=== PATIENT | male | born 1980 | race Caucasian/White ===

== ENCOUNTER 2016-04-15 17:40 | Observation (INO) | payer OTHER, BC ==
[~2016-04-15] VITALS: Ht 180.3 cm; Wt 70.8 kg
[~2016-04-15 17:40] MED LIST: ALPR.5T PO; CIPR-17 PO; FAMO20TA5 PO; HYDR-2890 PO; HYDR-3714 PO; HYOS0.1216 PO; LEVO250T7 PO; MECL25TA3 PO; OXYC1TAB87 PO; PHEN200T27 PO; TEMA30CA6 PO; TRAM50TA2 PO; [UNRECOGNIZED DRUG - OTHER]; [UNRECOGNIZED DRUG - OTHER]
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
[2016-04-15] MEDS ORDERED: CHOL378P PO (17:54)
[2016-04-15] MEDS ORDERED: NS IV 1000 ML 1,000 ML IV ONE (17:56)
[2016-04-15 18:13] LABS: BASOPHILS % (AUTO) 0 % (0-10); EOSINOPHILS # (AUTO) 0.2 10^3/uL (0.0-0.3); EOSINOPHILS % (AUTO) 3 % (0-10); LYMPHOCYTES # (AUTO) 2.5 X 10^3 (1.0-4.0); LYMPHOCYTES % (AUTO) 35 % (12-44); MEAN CORPUSCULAR HEMOGLOBIN 30 PG (25-34); MEAN CORPUSCULAR HGB CONC 37 G/DL (32-36); MEAN CORPUSCULAR VOLUME 82 FL (80-99); MEAN PLATELET VOLUME 9.6 FL (7.4-10.4); MONOCYTES # (AUTO) 0.6 X 10^3 (0.0-1.0); MONOCYTES % (AUTO) 8 % (0-12); NEUTROPHILS % (AUTO) 55 % (42-75); PLATELET COUNT 197 10^3/uL (130-400); RED BLOOD COUNT 5.05 10^6/uL (4.35-5.85); RED CELL DISTRIBUTION WIDTH 12.5 % (10.0-14.5); WHITE BLOOD COUNT 7.3 10^3/uL (4.3-11.0)
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
[2016-04-15 18:21] LABS: INR 1.1 (0.8-1.4); PROTHROMBIN TIME PATIENT 13.9 SEC (12.2-14.7)
[2016-04-15 18:31] LABS: BILIRUBIN,URINE NEGATIVE (NEGATIVE); KETONES,URINE NEGATIVE (NEGATIVE); LEUKOCYTE ESTERASE ,URINE NEGATIVE (NEGATIVE); NITRITE,URINE NEGATIVE (NEGATIVE); PH,URINE 6.5 (5-9); PROTEIN,URINE NEGATIVE (NEGATIVE); SQUAMOUS EPITHELIAL CELL,UR RARE /HPF; UROBILINOGEN,URINE NORMAL (NORMAL)
[2016-04-15 18:32] LABS: ALANINE AMINOTRANSFERASE 40 U/L (0-55); ALBUMIN 4.9 G/DL (3.2-4.5); ANION GAP 12 MMOL/L (5-14); ASPARTATE AMINO TRANSFERASE 28 U/L (5-34); BILIRUBIN,TOTAL 0.4 MG/DL (0.1-1.0); BLOOD UREA NITROGEN 26 MG/DL (7-18); BUN/CREATININE RATIO 25; CALCIUM 9.7 MG/DL (8.5-10.1); CARBON DIOXIDE 24 MMOL/L (21-32); CHLORIDE 104 MMOL/L (98-107); CREATINE KINASE 248 U/L (30-200); CREATININE SERUM 1.05 MG/DL (0.60-1.30); GFR ESTIMATED > 60; GLUCOSE 92 MG/DL (70-105); POTASSIUM 3.6 MMOL/L (3.6-5.0); SODIUM 140 MMOL/L (135-145); TOTAL PROTEIN 7.6 G/DL (6.4-8.2)
[2016-04-15 18:38] LABS: TROPONIN I < 0.30 NG/ML (<0.30)
[2016-04-15] MEDS ORDERED: ENALAPRILAT 2.5 MG/2 ML (VASOTEC) VIAL IV ONE (18:45)
[2016-04-15 20:00] VITALS: BP 144/87
[2016-04-15] MEDS ORDERED: CATHETER FLUSH 10 ML SYR IV PRN (20:15)
[2016-04-15] MEDS: NS IV 1000 ML 1,000 ML IV SCH (20:26)
[2016-04-15 21:00] VITALS: BP 132/87
[2016-04-15 22:00] VITALS: BP 126/82
[2016-04-15] MEDS: fentaNYL INJECTION 100 MCG/2 ML AMP IVP PRN (22:16)
[2016-04-15 23:00] VITALS: BP 135/90
[2016-04-16] VITALS (14 sets, daily range): BP systolic 107–131; BP diastolic 65–90
[2016-04-16] MEDS: NS IV 1000 ML 1,000 ML IV SCH ×4 (00:15→08:36)
[2016-04-16] MEDS: fentaNYL INJECTION 100 MCG/2 ML AMP IVP PRN ×4 (00:22→10:51)
[2016-04-16 04:40] LABS: BASOPHILS % (AUTO) 0 % (0-10); EOSINOPHILS # (AUTO) 0.2 10^3/uL (0.0-0.3); EOSINOPHILS % (AUTO) 4 % (0-10); LYMPHOCYTES # (AUTO) 2.6 X 10^3 (1.0-4.0); LYMPHOCYTES % (AUTO) 47 % (12-44); MEAN CORPUSCULAR HEMOGLOBIN 30 PG (25-34); MEAN CORPUSCULAR HGB CONC 36 G/DL (32-36); MEAN CORPUSCULAR VOLUME 84 FL (80-99); MEAN PLATELET VOLUME 9.8 FL (7.4-10.4); MONOCYTES # (AUTO) 0.5 X 10^3 (0.0-1.0); MONOCYTES % (AUTO) 9 % (0-12); NEUTROPHILS # (AUTO) 2.3 X 10^3 (1.8-7.8); NEUTROPHILS % (AUTO) 41 % (42-75); PLATELET COUNT 200 10^3/uL (130-400); RED BLOOD COUNT 4.48 10^6/uL (4.35-5.85); RED CELL DISTRIBUTION WIDTH 12.5 % (10.0-14.5); WHITE BLOOD COUNT 5.6 10^3/uL (4.3-11.0)
[2016-04-16 04:58] LABS: ANION GAP 10 MMOL/L (5-14); BLOOD UREA NITROGEN 18 MG/DL (7-18); BUN/CREATININE RATIO 23; CALCIUM 8.3 MG/DL (8.5-10.1); CARBON DIOXIDE 21 MMOL/L (21-32); CHLORIDE 108 MMOL/L (98-107); CREATININE SERUM 0.77 MG/DL (0.60-1.30); GFR ESTIMATED > 60; GLUCOSE 86 MG/DL (70-105); MAGNESIUM 2.2 MG/DL (1.8-2.4); PHOSPHORUS 3.5 MG/DL (2.3-4.7); POTASSIUM 3.5 MMOL/L (3.6-5.0); SODIUM 139 MMOL/L (135-145)
[2016-04-16] MEDS ORDERED: POTASSIUM CL 10MEQ/50ML IVPB 50 ML IV SCH ×2 (05:45→06:00)
[2016-04-16] MEDS ORDERED: KCL 20 MEQ TAB (K-DUR) PO ONE (05:45)
[2016-04-16] MEDS ORDERED: KCL 20 MEQ TAB (K-DUR) PO SCH (06:00)
[2016-04-16] MEDS ORDERED: MAGNESIUM 1 GM/100 ML IVPB 100 ML IV SCH (06:00)
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
[2016-04-16] MEDS ORDERED: CHOL4PAC2 PO (08:48)
--- NOTE | 2016-04-16 08:51 | Diagnostic Imaging Report ---
INDICATION: Electrocution Portable chest 2:50 AM Heart size and pulmonary vascularity are normal. Lungs are clear. There are no effusions or pneumothoraces. IMPRESSION: No acute abnormalities in the chest Dictated by: Dictated on workstation # [id number]
[2016-04-16] MEDS ORDERED: NICOTINE 7 MG (NICODERM) PATCH TD SCH (09:00)
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
[2016-04-16] MEDS ORDERED: HYDR-3731 PO (10:09)
--- NOTE | 2016-04-16 10:10 | Discharge Instructions ---
Discharge Instructions Discharge Medications New, Converted or Re-Newed RX: RX on Chart New Medications: Hydrocodone/Acetaminophen (Lortab 10-325 mg Tablet) 1 Each Tablet 1 EACH PO TID PRN PAIN #30 TAB Continued Medications: Alprazolam (Xanax) 0.5 Mg Tablet 0.5 MG PO HS TAB Cholestyramine (with Sugar) (Cholestyramine Packet) 4 Gm Powd.pack 4 GM PO DAILY EACH Temazepam (Restoril) 30 Mg Capsule 30 MG PO HS CAP Patient Instructions Goal/Follow Up Appt: Dr Martínez in 1 week Activity & Diet Discharge Diet: No Restrictions Activity as Tolerated: Yes KASH OLIVEROS DO Apr 16, 2016 10:10
[2016-04-16] MEDS ORDERED: CHOLESTYRAMINE 4 GM (QUESTRAN LITE, PREVALITE) PKT PO SCH (10:15)
--- NOTE | 2016-04-16 12:17 | Consultation-Cardiology ---
HPI-Cardiology Cardiology Consultation: Date of Consultation 04/16/16 Date of Admission Attending Physician Susan Garcia DO Admitting Physician Verónica,Local Physician Consulting Physician Joseph PICKERING MD HPI: Chief Complaint: Electrocution This is a 35-year-old gentleman with previous history of hypertension. He presents with electrocution with 100,000 V. No chest pain, shortness of breath , syncope or palpitations. Review of Systems-Cardiology Review of Systems Constitutional: No As described under HPI, No no symptoms reported, No chills, No fever, No lightheadedness, No malaise, No tiredness, No weight loss, No weight gain, No other Eyes: No As described under HPI, No no symptoms reported, No blindness, No blurred vision, No contact lenses, No drainage, No decreased acuity, No foreign body sensation, No glasses, No inflammation, No pain, No photophobia, No previous injury, No shadows, No tunnel vision, No other, No vision change Ears/Nose/Throat: No As described under HPI, No no symptoms reported, No chronic hearing loss, No epistaxis, No ear discharge, No ear pain, No loose teeth, No mouth pain, No mouth swelling, No nasal drainage, No nose pain, No recent hearing loss, No throat pain, No throat swelling, No ulcerations, No other Respiratory: No no symptoms reported, No As described under HPI, No cough, No orthopnea, No shortness of breath, No SOB with excertion, No SOB at rest, No stridor, No wheezing, No other Cardiovascular: No no symptoms reported, No As described under HPI, No chest pain, No edema, No irregular heart rate, No lightheadedness, No palpitations, No syncope, No other Gastrointestinal: No no symptoms reported, No As described under HPI, No abdomen distended, No abdominal pain, No blood streaked bowels, No constipation , No diarrhea, No difficulty swallowing, No nausea, No poor appetite, No poor fluid intake, No rectal bleeding, No vomiting, No other, No nausea/vomiting/ diarrhea, No stool coloration changes Genitourinary: No no symptoms reported, No As described under HPI, No burning, No dysuria, No discharge, No frequency, No flank pain, No hematuria, No incontinence, No pain, No urgency, No other, No urine frequency changes, No urine coloration changes Musculoskeletal: No no symptoms reported, No As describe under HPI, No back pain, No gout, No joint pain, No joint swelling, No muscle pain, No muscle stiffness, No neck pain, No other Skin: No no symptoms reported, No As described under HPI, No change in color, No change in hair/nails, No dryness, No lesions, No lumps, No rash, No other, No skin related problems, No ulcerations, No rash on exposed areas, No ulcerations on exposed areas Psychiatric/Neurological: No As described under HPI, No anxiety, No depression , No emotional problems, No focal weakness, No headache, No no symptoms reported , No numbness, No other, No pre-existing deficit, No seizure, No syncope, No tingling, No tremors, No weakness All Other Systems Reviewed Negative Unless Noted: Yes [id number] Hx Patient Social History Marrital Status: (11 yrs) Employed/Student: employed ([employer]L 6 months) Alcohol Use: Denies Use Recreational Drug Use: No Smoking Status: Former Smoker Type Used: Cigars, Cigarettes Recent Foreign Travel: No Recent Infectious Disease Expo: No Physical Abuse Screen: No Sexual Abuse: No Immunizations Up To Date Tetanus Booster (TDap): Less than 5yrs Date of Influenza Vaccine: Jan 03, 2016 Past Medical History PMH As described under Assessment. Family Medical History Family History: Cataract GRANDMOTHER, Onset:Unknown Family history: Diabetes mellitus GRANDFATHER, Onset:Unknown Family history: Hypertension 03 FATHER, Onset:Unknown 03 MOTHER, Onset:Unknown GRANDFATHER, Onset:Unknown Family history: Thyroid disorder GRANDMOTHER, Onset:Unknown Hearing loss 03 FATHER, Onset:Unknown Heart disease 03 FATHER, Onset:Unknown GRANDFATHER, Onset:Unknown History of - anemia 03 FATHER, Onset:Unknown Stroke 03 FATHER, Onset:Unknown Allergies and Home Medications Allergies Coded Allergies: meperidine (Verified Allergy, Severe, HIVES, 04/15/16) Sulfa (Sulfonamide Antibiotics) (Verified Allergy, Unknown, 12/09/15) Home Medications Alprazolam 0.5 Mg Tablet 0.5 MG PO HS (Reported) Cholestyramine (with Sugar) 4 Gm Powd.pack 4 GM PO DAILY (Reported) Hydrocodone/Acetaminophen 1 Each Tablet #30 1 EACH PO TID PRN PRN PAIN Prescribed by: SUSAN GARCIA on 04/16/16 1009 Temazepam 30 Mg Capsule 30 MG PO HS (Reported) Physical Exam-Cardiology Physical Exam Vital Signs/I&O Vital Sign - Last 12Hours 04/16/16 04/16/16 04/16/16 04/16/16 01:00 01:00 02:00 03:00 Pulse 63 59 57 63 Resp 8 12 11 B/P 117/66 119/65 107/66 Pulse Ox 97 94 96 O2 Delivery Room Air Room Air Room Air 04/16/16 04/16/16 04/16/16 04/16/16 04:00 04:00 05:00 06:00 Temp 98.0 Pulse 52 64 56 Resp 18 10 6 B/P 123/73 111/71 126/84 Pulse Ox 98 97 97 94 O2 Delivery Room Air Room Air Room Air Room Air 04/16/16 04/16/16 07:00 08:00 Temp 96.3 Pulse 63 O2 Delivery Room Air Intake and Output 04/16/16 00:00 Intake Total 1000 ml Balance 1000 ml Capillary Refill : Less Than 3 Seconds Constitutional: No appears stated age, No AAO x 3, No apparent distress, No PERRL, No well-developed, No well-nourished, No other HEENT: No PERRL, No normal ENT inspection, No TMs normal, No pharynx normal, No scleral icterus (R), No scleral icterus (L), No pale conjunctivae (R), No pale conjunctivae (L), No photophobia, No TM abnormal (R), No TM abnormal (L), No pharyngeal erythema, No tonsillar exudate, No other, No discharge, No EOMI, No hearing is well preserved, No hard of hearing, No oral hygience is good, No ulceration, No xanthelasmas are seen Neck: No non-tender, No full range of motion, No supple, No normal inspection, No carotid bruit, No limited range of motion, No lymphadenopathy (R), No lymphadenopathy (L), No tender lateral, No tender midline, No thyromegaly, No other, No carotid pulses are 2 + bilaterally, No with good upstrokes Respiratory: No accessory muscle use, No respiratory distress, No chest tender , No chest expansion is symmetric, No chest is bilaterally symmetric, No lungs clear to percussion, No lungs clear to auscultation, No crackles, No rhonchi, No rales, No stridor, No wheezing, No pleural rub, No other Cardiovascular: No regular rate-rhythm, No irregularly irregular, No extra beats, No parasternal heave is noted, No JVD, No edema, No bradycardia, No tachycardia, No point of maximal impulse, No cardiac thrills are palpable, No S1 and S2, No gallop/S3, No gallop/S4, No diastolic murmur, No systolic murmur, No friction rub, No click, No other Gastrointestinal: No tender, No soft, No round, No distended, No pulsatile mass , No organomegaly, No guarding, No rebound, No tenderness, No hernia, No mass, No audible bowel sounds, No abnormal bowel sounds, No abdominal bruits, No spleenomegaly, No other Rectal: deferred Extremities: No normal range of motion, No non-tender, No normal inspection, No pedal edema, No calf tenderness, No normal capillary refill, No pelvis stable , No calf tenderness, No inflammation, No pedal edema, No slow capillary refill , No swelling, No other, No abrasion, No clubbing, No cyanosis, No ecchymosis, No laceration, No no lower extremity edema bilateral, No significant edema, No tenderness, No wound Neurologic/Psychiatric: No cast associate II-XII nml as tested, No no motor/sensory deficits, No alert, No normal mood/affect, No oriented x 3, No abnormal cerebellar tests, No abnormal cast associate II-XII, No abnormal gait, No aphasia, No EOM palsy, No facial droop, No motor weakness, No sensory deficit, No depressed affect, No disoriented x 3, No other, No grossly intact, No power is 5/5 both on sides Skin: No normal color, No warm/dry, No cyanosis, No cool, No diaphoresis, No damp, No ecchymosis, No jaundice, No mottled, No pallor, No rash, No tattoos/ piercings, No ulcerations, No rash on exposed areas, No ulcerations on exposed areas, No other Data Review Labs Laboratory Tests 04/15/16 17:55: Activated Partial Thromboplast Time 25, Alanine Aminotransferase (ALT/SGPT) 40, Albumin 4.9H, Alkaline Phosphatase 106, Anion Gap 12, Aspartate Amino Transf ( AST/SGOT) 28, BUN/Creatinine Ratio 25, Basophils # (Auto) 0.0, Basophils (%) ( Auto) 0, Blood Urea Nitrogen 26H, Calcium Level 9.7, Carbon Dioxide Level 24, Chloride Level 104, Creatine Kinase MB 3.4, Creatinine 1.05, Eosinophils # (Auto ) 0.2, Eosinophils (%) (Auto) 3, Estimat Glomerular Filtration Rate > 60, Glucose Level 92, Hematocrit 42, Hemoglobin 15.2, INR Comment 1.1, Lymphocytes # (Auto) 2.5, Lymphocytes (%) (Auto) 35, Mean Corpuscular Hemoglobin 30, Mean Corpuscular Hemoglobin Concent 37H, Mean Corpuscular Volume 82, Mean Platelet Volume 9.6, Monocytes # (Auto) 0.6, Monocytes (%) (Auto) 8, Neutrophils # (Auto ) 4.0, Neutrophils (%) (Auto) 55, Platelet Count 197, Potassium Level 3.6, Prothrombin Time 13.9, Red Blood Count 5.05, Red Cell Distribution Width 12.5, Sodium Level 140, Total Bilirubin 0.4, Total Creatine Kinase 248H, Total Protein 7.6, Troponin I < 0.30, White Blood Count 7.3 04/15/16 18:12: Urine Bacteria NONE, Urine Bilirubin NEGATIVE, Urine Casts NONE, Urine Clarity CLEAR, Urine Color YELLOW, Urine Crystals NONE, Urine Culture Indicated NO, Urine Glucose (UA) NEGATIVE, Urine Ketones NEGATIVE, Urine Leukocyte Esterase NEGATIVE, Urine Mucus NEGATIVE, Urine Nitrite NEGATIVE, Urine Protein NEGATIVE, Urine RBC NONE, Urine RBC (Auto) NEGATIVE, Urine Specific Sandy 1.015L, Urine Squamous Epithelial Cells RARE, Urine Urobilinogen NORMAL, Urine WBC NONE, Urine pH 6.5 04/16/16 00:38: Troponin I < 0.30 04/16/16 03:42: Anion Gap 10, BUN/Creatinine Ratio 23, Basophils # (Auto) 0.0, Basophils (%) ( Auto) 0, Blood Urea Nitrogen 18, Calcium Level 8.3L, Carbon Dioxide Level 21, Chloride Level 108H, Creatinine 0.77, Eosinophils # (Auto) 0.2, Eosinophils (%) (Auto) 4, Estimat Glomerular Filtration Rate > 60, Glucose Level 86, Hematocrit 38L, Hemoglobin 13.5, Lymphocytes # (Auto) 2.6, Lymphocytes (%) (Auto) 47H, Mean Corpuscular Hemoglobin 30, Mean Corpuscular Hemoglobin Concent 36, Mean Corpuscular Volume 84, Mean Platelet Volume 9.8, Monocytes # (Auto) 0.5, Monocytes (%) (Auto) 9, Neutrophils # (Auto) 2.3, Neutrophils (%) (Auto) 41L, Platelet Count 200, Potassium Level 3.5L, Red Blood Count 4.48, Red Cell Distribution Width 12.5, Sodium Level 139, Total Creatine Kinase 175, White Blood Count 5.6, Magnesium Level 2.2, Phosphorus Level 3.5 ECG Impression ECG Initial ECG Rhythm: Normal Sinus A/P-Cardiology Assessment/Admission Diagnosis Status post electrocution, hypertension Plan Normal EKG, normal lab work, normal telemetry overnight. Okay to discharge. I'll be happy to see him as an outpatient for hypertension if required. Clinical Quality Measures DVT/VTE Risk/Contraindication: RFS Level Per Nursing on Admit: 0=No Risk/No VTE PPX Joseph PICKERING MD Apr 16, 2016 12:17 pm
[2016-04-16] MEDS ORDERED: TEMAZEPAM 15 MG (RESTORIL) CAP PO SCH (21:00)
[2016-04-16] MEDS ORDERED: ALPRAZolam 0.5 MG (XANAX) TAB PO SCH (21:00)
== END 2016-04-16 10:09 | disposition home or self-care (01) ==
LOC: EDUNIT# 17:40 → ER 17:42 → ICU 19:03 → UNDOADMOB 19:03 → ICU 19:50 → UNDODISOB 04-16 10:09
PROVIDERS: ADMIT Internal Medicine; ATTEND Internal Medicine
DX: T75.4XXA Electrocution, initial encounter (principal); W85.XXXA Exposure to electric transmission lines, initial encounter; I10 Essential (primary) hypertension; K21.9 Gastro-esophageal reflux disease without esophagitis; F41.9 Anxiety disorder, unspecified; Y99.0 Civilian activity done for income or pay
CPT/HCPCS: 36415; 71010; 80048; 80053; 81000; 82550; 82553; 83735; 84100; 84484; 85025; 85610; 85730; 87081; 93005; 93041; 96361; 96374; G0378

== ENCOUNTER → 2021-11-09 | Outpatient (REF) ==
[~2021-11-09] MED LIST changes: +CHOL378P12 PO; +CHOL4POW4 PO; +HYDR-3731 PO
--- NOTE | 2021-11-09 09:33 | Diagnostic Imaging Report ---
CLINICAL HISTORY: Left thumb laceration and swelling. Smashed the left thumb. COMPARISON: None. TECHNIQUE: 3 views of the left hand and left thumb. FINDINGS: Nondisplaced fracture seen at the distal aspect of the left 1st distal phalanx. Associated soft tissue edema is present. No other fractures are seen in the left hand. Alignment is anatomic. IMPRESSION: 1. Tuft fracture involving the distal aspect of the left 1st phalanx. Dictated by: Dictated on workstation # [id number]
== END | disposition home or self-care (01) ==
LOC: OCC 08:31
PROVIDERS: ATTEND Nurse Practitioner Family
DX: Z01.818 Encounter for other preprocedural examination (principal)
CPT/HCPCS: 73140

== ENCOUNTER → 2021-12-18 | Outpatient (REF) ==
--- NOTE | 2021-12-18 13:04 | Diagnostic Imaging Report ---
FINGER(S) INDICATION: Fracture follow-up. COMPARISON: 09/09/2021. TECHNIQUE: Three views of the left thumb. FINDINGS: The mildly comminuted fracture in the tuft of the thumb maintains stable alignment and position. No interosseous or periosteal healing callus has developed. No new fracture. IMPRESSION: No healing has occurred in the fracture of the tuft in the thumb. Dictated by: Dictated on workstation # [id number]
== END ==
LOC: OCC 12:19
PROVIDERS: ATTEND Nurse Practitioner Family
DX: Z47.89 Encounter for other orthopedic aftercare (principal)
CPT/HCPCS: 73140

== ENCOUNTER 2022-12-20 14:25 | Outpatient (CLI) | payer BC, OTHER ==
[~2022-12-20] VITALS: Ht 180.3 cm; Wt 88.3 kg
[2022-12-21] MEDS ORDERED: MV-M1TAB37 PO (14:51)
[2022-12-21] MEDS ORDERED: FLUT9.9S NS (14:51)
[2022-12-21] MEDS ORDERED: PANT40SU PO (14:51)
[2022-12-21] MEDS ORDERED: FEXO180T84 PO (14:51)
== END 2022-12-21 15:39 | disposition home or self-care (01) ==
LOC: PREOP 14:25
PROVIDERS: ATTEND Surgery
DX: Z01.818 Encounter for other preprocedural examination (principal)

== ENCOUNTER 2022-12-30 11:07 | Day surgery (SDC) | payer BC ==
[~2022-12-30] VITALS: Ht 180.3 cm; Wt 88.3 kg
[2022-12-30] VITALS (12 sets, daily range): BP systolic 110–155; BP diastolic 58–103
[~2022-12-30 11:07] MED LIST changes: +FEXO180T84 PO; +FLUT9.9S NS; +MV-M1TAB37 PO; +PANT40SU PO
[2022-12-30] MEDS ORDERED: NS (IVPB) 50 ML 50 ML ONE (11:19)
[2022-12-30] MEDS ORDERED: ceFAZolin INJECTION 2,000 MG ONE (11:19)
[2022-12-30] MEDS ORDERED: LACTATED RINGERS 1,000 ML 1,000 ML IV PRN (11:30)
[2022-12-30] MEDS ORDERED: ceFAZolin INJECTION 2,000 MG in NS (IVPB) 50 ML 50 ML IV ONE (11:30)
[2022-12-30] MEDS ORDERED: SOUR1000 PO (12:06)
[2022-12-30] MEDS ORDERED: proPOfol INJECTION 200 MG/20 ML VIAL IV ONE ×2 (12:15→14:01)
[2022-12-30] MEDS ORDERED: ONDANSETRON INJECTION 4 MG/2 ML (SDV) ONE (12:15)
[2022-12-30] MEDS ORDERED: fentaNYL INJECTION 100 MCG/2 ML VIAL ONE (12:15)
[2022-12-30] MEDS ORDERED: MIDAZOLAM INJ 2 MG/2 ML VIAL ONE (12:15)
[2022-12-30] MEDS ORDERED: LIDOCAINE PF 2% 5 ML VIAL ONE (12:15)
[2022-12-30] MEDS ORDERED: dexAMETHasone INJ 10 MG/ML 1 ML VIAL ONE (12:15)
[2022-12-30] MEDS ORDERED: GLYCOPYRROLATE INJ 0.2 MG/ML 2 ML VIAL ONE (12:15)
[2022-12-30] MEDS ORDERED: NEOSTIGMINE 1 MG/1ML 10 ML VIAL ONE (12:16)
[2022-12-30] MEDS ORDERED: ROCURONIUM 50 MG/5 ML VIAL IV ONE (12:16)
[2022-12-30] MEDS ORDERED: LIDOCAINE/EPI 1%-1:200,000 (XYLOCAINE) 30 ML VIAL ONE (13:09)
[2022-12-30] MEDS ORDERED: SUCCINYLCHOLINE INJ 20 MG/1 ML 10 ML VIAL ONE (13:43)
--- NOTE | 2022-12-30 13:44 | Progress Note-Pre Operative ---
Pre-Operative Progress Note Date of Available H&P: Dec 30, 2022 Date H&P Reviewed: Dec 30, 2022 Time H&P Reviewed: 12:00 History & Physical: No changes noted Pre-Operative Diagnosis: ventral abd inc hernia, GERD JOSSELYN GRAMAJO MD Dec 30, 2022 13:44
[2022-12-30] MEDS ORDERED: PROMETHAZINE INJ 25 MG/ML VIAL IVP PRN (13:45)
[2022-12-30] MEDS ORDERED: HYDROcodone/ACETAMINOPHEN 5 MG/325 MG TABLET PO ONE (13:45)
[2022-12-30] MEDS ORDERED: METOCLOPRAMIDE INJ 10 MG/2 ML IVP PRN (13:45)
[2022-12-30] MEDS ORDERED: ACETAMINOPHEN 325 MG TABLET PO PRN ×2 (13:45)
[2022-12-30] MEDS ORDERED: oxyCODONE/ACETAMINOPHEN 5/325MG TABLET PO PRN (13:45)
[2022-12-30] MEDS ORDERED: morphine INJ 10 MG/ML 1ML (SYR OR VIAL) IVP PRN ×3 (13:45)
[2022-12-30] MEDS ORDERED: HYDR-3817 PO (13:46)
--- NOTE | 2022-12-30 13:46 | Discharge Inst-Surgical ---
D/C Lap Instructions-KIDO Reconcile Patient Problems Problems Reviewed?: Yes New, Converted, or Re-Newed RX: RX on Chart Follow Up Appt in 2 weeks Activity as tolerated No driving for 24 hours No driving while on pain medications Incentive Spirometry use every 2 hours while awake Regular Diet Symptoms to Report: Fever over 101 degree F, Nausea/Vomiting Infection Signs and Symptoms to report: Increased redness, Foul odor of wound, Increased drainage Bathing instructions: May shower Operative Area Clean/Dry; Keep incision clean/dry If any problems/questions: Contact your physician or go to Emergency Room RAJESH SAINZ APRN Dec 30, 2022 13:46
[2022-12-30] MEDS ORDERED: LIDOCAINE/EPI 1%-1:200,000 (XYLOCAINE) 30 ML VIAL INJ ONE (14:12)
[2022-12-30] MEDS ORDERED: SUGAMMADEX INJ 100 MG/ML 5 ML VIAL IV ONE (14:14)
[2022-12-30] MEDS ORDERED: KETOROLAC INJ 30 MG/ML VIAL ONE (14:16)
[2022-12-30] MEDS ORDERED: PHENYLEPHRINE 100 MCG/ML 10 ML (ANESTHESIA) SYR ONE (14:17)
[2022-12-30] MEDS ORDERED: SEVOFLURANE (ULTANE) 15 ML INHAL SOLN ONE (14:17)
[2022-12-30] MEDS ORDERED: HYDROmorphone INJECTION 2 MG/ML VIAL ONE (14:26)
--- NOTE | 2022-12-30 14:32 | Progress Note-Post Operative ---
Post-Operative Progess Note Surgeon (s)/Executive Producer Promos (s) Surgeon Dr. Kirby Headley M.D. Executive Producer Promos: Saeed Sainz APRN Pre-Operative Diagnosis ventral abd inc hernia, GERD Post-Operative Diagnosis Ventral abdomial incisional hernia (2 cm), Reflux esophagitis los Tamika grade B, small hiatal hernia (2 cm), moderate gastritis Procedure & Operative Findings Date of Procedure 12/30/22 Procedure Performed/Findings Open ventral abdominal incisional hernia repair with mesh, EGD with Biopsy Anesthesia Type GET with local Estimated Blood Loss Estimated blood loss (mL): Minimal Specimens/Packing Specimens Removed 1) Abdominal wall lipoma 2) GE Junction 3) Antrum SAEED SAINZ RIPSAW GRADER Dec 30, 2022 14:32
--- NOTE | 2022-12-30 14:43 | Anesthesia-General Post-Op ---
General Patient Condition Mental Status/LOC: Same as Preop Cardiovascular: Satisfactory Nausea/Vomiting: Absent Respiratory: Satisfactory Pain: Controlled Complications: Absent Post Op Complications Complications None Follow Up Care/Instructions Patient Instructions None needed. Anesthesia/Patient Condition Patient Condition Patient is doing well, no complaints, stable vital signs, no apparent adverse anesthesia problems. No complications reported per nursing. D/C home per [facility] [place]: Yes LAURA ADEN CRNA Dec 30, 2022 14:43
[2022-12-30] MEDS ORDERED: PROMETHAZINE INJ 25 MG/ML VIAL IVP ONE (14:45)
[2022-12-30] MEDS ORDERED: HYDROmorphone INJECTION 2 MG/ML VIAL IV ONE (14:45)
[2022-12-30] MEDS ORDERED: HYDROcodone/ACETAMINOPHEN 5 MG/325 MG TABLET ONE (16:14)
--- NOTE | 2022-12-30 20:51 | OPERATIVE REPORT ---
DATE OF SERVICE: 12/30/2022 ATTENDING PRIMARY CARE PHYSICIAN: Dr. Jacobo De La Cruz PREOPERATIVE DIAGNOSES: 1. Reducible ventral abdominal incisional hernia. 2. Gastroesophageal reflux disease 3. Abdominal wall lipoma. POSTOPERATIVE DIAGNOSES: 1. Ventral abdominal incisional hernia from previous laparoscopic port incision in the supraumbilical region. 2. Reflux esophagitis, Lewis grade B. 3. Small hiatal hernia, 2 cm in size. 4. Moderate gastritis. 5. Subcutaneous abdominal wall lipoma 2cm. PROCEDURE PERFORMED: 1. Ventral abdominal incisional hernia repair with mesh. 2. EGD with biopsy. 3. Excision subcutaneous abdominal wall lipoma 2cm. SURGEON: Cheyanne Gramajo M.D. CONCRETE FINISHER: Saeed Hammond APRN ANESTHESIA: General endotracheal. ESTIMATED BLOOD LOSS: Minimal. FINDINGS: 1. Ventral abdominal incisional hernia from previous laparoscopic port incision in the supraumbilical region. 2. Reflux esophagitis, Lewis grade B. 3. Small hiatal hernia, 2 cm in size. 4. Moderate gastritis. DISPOSITION: The patient tolerated the procedure well. INDICATIONS: The patient is a 42-year-old male who has had a hernia for quite some time. He reports that he underwent a laparoscopic cholecystectomy in 2008, and at some point, he was doing some lifting and exertion and felt a shearing sensation in the epigastric region and then eventually a palpable bulge. He reports that this was initially small and tolerable; however, over time has grown larger in size. Upon examination, he was found to have a reducible ventral abdominal incisional hernia, which was tender to palpation. The patient also does have significant gastroesophageal reflux disease and this has been present for several years; however, this has worsened over time. He does have some risk factors for reflux including tobacco products, alcohol as well as working nights. DESCRIPTION OF PROCEDURE: The patient was brought to the operating room, laid supine on the table. After adequate IV pain and sedative medications and general endotracheal intubation, the abdomen was prepped and draped in standard surgical fashion. Marcaine 0.5% with epinephrine was used to anesthetize the overlying skin in the epigastric region. A transverse skin incision was then made using a #15 blade. Subcutaneous tissue was then dissected using electrocautery. The hernia sac was identified and dissected out using cautery. There was only preperitoneal fat within the hernia sac, which was reduced back underneath the fascia. The intraperitoneal contents were not palpable, likely indicating that the hernia was within the falciform ligament. An adjacent well circumscribed lesion was identified in the subcutaneous tissue of the abdominal wall. This lesion was approximately 2cm in size and completely excised using electrocautery with visualization of good hemostasis. We then proceeded to clear away good viable fascia and created a space underneath the fascia approximately 6 cm in size with blunt dissection with visualization of good hemostasis. A 6.4 cm coated polypropylene mesh was then placed into the defect and sutured transfascially in a concentric manner using 0 Prolene interrupted sutures. Good hemostasis was observed. The subcutaneous tissue was then reapproximated using 3-0 Vicryl interrupted suture. Skin was closed using 4-0 Monocryl running subcuticular suture. The wound was then cleaned and covered with Dermabond, followed by tonsil sponges, followed by 4 x 4 gauze, large Op-Site, and then an abdominal binder. The mouthpiece was then applied and the endoscope was placed in the mouth, visualizing the pharynx and hypopharyngeal region. Vocal cords, epiglottis and vallecula identified and appeared to be normal. The endoscope was then gently intubated in the esophageal opening and esophagus insufflated. The endoscope was then advanced through the first, second and third portions of esophagus at the level of the GE junction. A reflux esophagitis, Lewis grade B identified. No ulcers or strictures identified in this region. A biopsy was taken with forceps with visualization of good hemostasis. The endoscope was then advanced into the stomach and endoscope retroflexed, visualizing a small hiatal hernia approximately 2 cm in size. There was a moderate gastritis, more towards the stomach antrum, no formal ulcerations, polyps or any neoplasms. A biopsy was taken of the stomach antrum to rule out H. pylori with visualization of good hemostasis. The endoscope was then advanced through the pylorus and the first and second portion of the duodenum, which appeared normal with no ulcerations. The endoscope was then slowly withdrawn while taking a second look and suctioning of residual air with no additional findings. The patient tolerated the procedure well. We will recommend the necessary lifestyle and dietary accommodation including small and more frequent meals, avoidance of eating at night as well as head elevation while lying supine. He was recently started on Protonix and we will have him continue with that medication regimen. He will also be instructed to decrease, discontinue or moderate alcohol and tobacco products. He will also be instructed to keep the pressure dressing on for the next 5 days and then remove. He will also need to wear the abdominal binder, both day and night for the next 2 weeks and to do no heavy lifting or exertion for a total of 6 weeks. Job ID: [id number] DocumentID: [id number] Dictated Date: 12/30/2022 15:07:24 Rolls Baker Date: 12/30/2022 20:49:00 Dictated By: CHEYANNE GRAMAJO MD [facility]
== END 2022-12-30 16:38 ==
LOC: SDC 11:07
PROVIDERS: ATTEND Surgery
DX: K21.00 Gastro-esophageal reflux disease with esophagitis, without bleeding (principal); K43.2 Incisional hernia without obstruction or gangrene; K44.9 Diaphragmatic hernia without obstruction or gangrene; K29.70 Gastritis, unspecified, without bleeding; D17.1 Benign lipomatous neoplasm of skin and subcutaneous tissue of trunk; F17.290 Nicotine dependence, other tobacco product, uncomplicated; Z90.49 Acquired absence of other specified parts of digestive tract; Z28.310 Unvaccinated for COVID-19; Z79.899 Other long term (current) drug therapy
CPT/HCPCS: 43239; 49593; 87081; 94664; C1781